=== PATIENT | female | born 1985 | race Caucasian/White ===

== ENCOUNTER 2016-09-20 13:47 | Emergency (ER) | payer MEDICAID ==
[2016-09-20 13:57] VITALS: BP 131/77; PULSE 73; RESP 18; TEMP 98.6; O2SAT 97
--- NOTE | 2016-09-20 14:21 | EDPHY ---
H & P Time Seen by Provider: 09/20/16 13:59 HPI/ROS: CHIEF COMPLAINT: Wasp sting HISTORY OF PRESENT ILLNESS: Patient is a 31-year-old female who presents emergency department with a red and inflamed right breast. The patient states that she was stung by a wasp. It initially landed on her neck. She watched it move down to her breast and then sting her. She pushed on the injection site to try to remove the stinger. She never saw a stinger. She now has increased redness surrounding the area. It is tender to palpation. She denies fevers or chills. No shortness of breath. No pharyngeal swelling. REVIEW OF SYSTEMS: My complete review of systems is negative except as mentioned in the HPI. Past Medical/Surgical History: WPW, asthma Social history: The patient does not smoke. Smoking Status: Never smoked Physical Exam: Vitals noted General Appearance: Alert and no distress. Head: Pupils equal. Normal. Airway intact. No swelling. Respiratory: No respiratory distress. Cardiac: regular rate and rhythm. Chest: There is mild erythema over the right lateral breast. This is surrounding a puncture site. There is no palpable mass at the puncture site. No fluctuance. No discharge. No visible pus. There is no streaking up into the axilla. Extremities: Full range of motion, normal appearing. Skin: No rashes or lesions. Neuro: Alert. Normal mood and affect. Constitutional: Initial Vital Signs Temperature (C) 37 C 09/20/16 13:52 Heart Rate 73 09/20/16 13:52 Respiratory Rate 18 09/20/16 13:52 Blood Pressure 131/77 H 09/20/16 13:52 O2 Sat (%) 97 09/20/16 13:52 O2 Delivery Mode Room Air Allergies/Adverse Reactions: codeine [Codeine] Allergy (Severe, Verified 03/19/14 17:24) Home Medications: Medication Instructions Recorded AZITHROMYCIN [Z-PACK] 250 mg PO DAILY #4 tab 12/19/14 oxyCODONE/APAP 5/325 [Percocet 1 - 2 tab PO Q4 PRN #10 tab 12/19/14 5/325] Cephalexin [Keflex (*)] 500 mg PO QID 5 Days 09/20/16 Medical Decision Making ED Course/Re-evaluation: In the emergency department I discussed possible etiologies with the patient. I answered all her questions. I feel this is most likely secondary to wasp sting rather than secondary infection. However, the patient will be covered with Keflex. I gave her warnings prior to leaving. She will return with worsening symptoms. I do not visualize a foreign body. Differential Diagnosis: My differential includes but is not limited to insect sting, allergic reaction, cellulitis, abscess, malignancy Departure - Departure Disposition: Home, Routine, Self-Care Clinical Impression: Sting, wasp Qualifiers: Encounter type: initial encounter Injury intent: undetermined intent Qualified Code(s): T63.464A - Toxic effect of venom of wasps, undetermined, initial encounter Condition: Good Instructions: Insect Bite or Sting (ED) Additional Instructions: Return with increasing redness, swelling, fever, chills or any other concerns. Take your entire course of antibiotics. Referrals: [facility] CARR [Other] - 5-7 days, call for appt.
== END 2016-09-20 14:31 | disposition home or self-care (01) ==
DX: T63.461A Toxic effect of venom of wasps, accidental (unintentional), initial encounter (principal); J45.909 Unspecified asthma, uncomplicated

== ENCOUNTER 2017-08-20 14:55 | Emergency (ER) | payer MEDICAID ==
[2017-08-20 15:00] VITALS: BP 135/81
--- NOTE | 2017-08-20 15:18 | EDPHY ---
General Time Seen by Provider: 08/20/17 15:01 Narrative: CHIEF COMPLAINT: Ear pain HISTORY OF PRESENT ILLNESS: Patient presents with complaints of bilateral ear pain. This started approximately 2 days ago. She was in traveling in [place] until 2 days ago. She was in the ocean and swimming pool. When she returned she had left- sided ear pain that was mild to moderate. It has now become severe and now spread to the right ear as well. Worse with any kind of palpation movement. She has decreased hearing in the ear and feels that she is under water. She has no headache but she does have some runny nose and sinus congestion. No trauma or injury. No drainage or bleeding from the ears. No neck pain or stiffness but no fever. No other associated Complaints or modifying factors. MEDICAL/SURGICAL/SOCIAL HISTORY: Both quadrants mi, asthma REVIEW OF SYSTEMS: Ten systems reviewed and are negative unless otherwise noted in the HPI EXAMINATION General Appearance: Alert, no distress Head: normocephalic, atraumatic ENT: Bilateral EAC erythema and edema consistent with otitis externa. Both TMs are well visualized and there is no bulging, erythema or purulence. There is some serous otitis media behind each. There is no erythema of the mastoids. Cardiovascular: Pulses normal throughout. Brisk cap refill Neurological: A&O, sensory symmetric, strength symmetric Skin: Warm and dry, no rash. No petechiae, purpura cellulitis. Extremities: Nontender, no pedal edema DIFFERENTIAL DIAGNOSES: Including but not limited to otitis externa, bilateral otitis externa, otitis media, mastoiditis MDM: 3:15 p.m. Acute bilateral otitis externa without any evidence of mastoiditis or otitis media. The TMs are well visualized. There is some serous otitis media, but there is no edema, bulging, perforation or purulence. I do feel that she is best treated with drops only and no oral antibiotics as they are not indicated. 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 We discussed follow up with ENT for definitive care. We discussed returning here in 24-48 hours if no improvement, or sooner for any worsening symptoms. She is comfortable this plan and discharged home stable condition. SUPERVISION: This patient was independently evaluated without direct involvement of or examination by the attending physician. ED Precautions: Worsening pain. Erythema, edema, cyanosis, pallor, paresthesia or anesthesia. - History Smoking Status: Never smoked - Objective Vital Signs: Initial Vital Signs Temperature (C) 98.1 F 08/20/17 14:58 Heart Rate 48 L 08/20/17 14:58 Respiratory Rate 20 08/20/17 14:58 Blood Pressure 135/81 H 08/20/17 14:58 O2 Sat (%) 95 08/20/17 14:58 O2 Delivery Mode Room Air Allergies/Adverse Reactions: codeine [Codeine] Allergy (Severe, Verified 08/20/17 14:57) Home Medications: Medication Instructions Recorded ALBUTEROL SULFATE 08/20/17 Ciprofloxacin HCl/Dexameth 4 drops OT BID #1 btl 08/20/17 [Ciprodex Otic Suspension] Fluticasone Nasal [Flonase Nasal 1 sprays NASAL DAILY #1 mdi 08/20/17 [place] (RX)] Departure - Departure Disposition: Home, Routine, Self-Care Clinical Impression: Bilateral otitis externa Qualifiers: Otitis externa type: swimmer's ear Chronicity: acute Qualified Code(s): H60.333 - Swimmer's ear, bilateral Allergic rhinitis Qualifiers: Allergic rhinitis trigger: unspecified Allergic rhinitis seasonality: seasonal Qualified Code(s): J30.2 - Other seasonal allergic rhinitis Condition: Good Instructions: Otitis Externa (ED), Allergic Rhinitis (ED) Additional Instructions: 1. Antibiotic drops to both ears as prescribed to completion 2. Contact Ear Nose and Throat physician for outpatient care next week 3. Wkwz-dqi-pjwalio anti-inflammatories as needed 4. Flonase prescription in each nostril once daily 5. Contact primary care physician for outpatient care 6. ED precautions for any worsening pain, failure to improve in 24-48 hours, drainage from the ears, redness behind the ears, headache or fever Referrals: Yesenia Hernandez MD [Medical Doctor] - As per Instructions Prescriptions: Ciprofloxacin HCl/Dexameth [Ciprodex Otic Suspension] 4 drops OT BID #1 btl Fluticasone Nasal [Flonase Nasal [place] (RX)] 1 sprays NASAL DAILY #1 mdi
== END 2017-08-20 15:44 | disposition home or self-care (01) ==
DX: H60.333 Swimmer's ear, bilateral (principal); J30.2 Other seasonal allergic rhinitis; I25.2 Old myocardial infarction